=== PATIENT | male | born 1965 | race Caucasian/White ===

== ENCOUNTER 2020-07-02 16:47 | Emergency (ER) | payer MEDICAID ==
[~2020-07-02] VITALS: Ht 190.5 cm; Wt 114.5 kg
[2020-07-02] MEDS ORDERED: DOXY100C77 PO (17:54)
[2020-07-02] MEDS ORDERED: DOXYCYCLINE 100MG CAPSULE PO STA (17:56)
[2020-07-02 18:12] VITALS: BP 167/103
== END 2020-07-02 18:16 | disposition home or self-care (01) ==
LOC: ER 16:47
DX: L03.221 Cellulitis of neck (principal); R03.0 Elevated blood-pressure reading, without diagnosis of hypertension; R53.83 Other fatigue; Z88.2 Allergy status to sulfonamides; Z79.899 Other long term (current) drug therapy
CPT/HCPCS: 99283

== ENCOUNTER 2021-01-22 08:20 | Emergency (ER) | payer MEDICAID ==
[~2021-01-22] VITALS: Ht 190.5 cm; Wt 113.6 kg
[2021-01-22] MEDS ORDERED: adenosine 3mg/ml 2ml vial IV ONE ×4 (08:40)
[2021-01-22] MEDS ORDERED: normal saline 1000ML IV soln IVB ONE ×2 (08:40→09:25)
[2021-01-22] MEDS ORDERED: aspirin 81mg tab.chew PO ONE (08:40)
[2021-01-22 08:58] LABS: BASOPHILS # (AUTO) 0.1 X10'3 (0-0.2); BASOPHILS % (AUTO) 0.5 % (0-1); EOSINOPHILS # (AUTO) 0.3 X10'3 (0-0.9); EOSINOPHILS % (AUTO) 2.8 % (0-6); HEMATOCRIT 55.2 % (42.0-52.0); LYMPHOCYTES # (AUTO) 3.8 X10'3 (1.1-4.8); MEAN CORPUSCULAR HGB CONC 35.1 g/dL (33.0-36.5); MEAN CORPUSCULAR VOLUME 94.1 FL (78-98); MEAN PLATELET VOLUME 8.7 FL (7.4-10.4); MONOCYTES # (AUTO) 0.9 X10'3 (0-0.9); MONOCYTES % (AUTO) 7.7 % (2-12); NEUTROPHILS # (AUTO) 6.1 X10'3 (1.8-7.7); PLATELET COUNT 230 X10'3 (140-440); RED BLOOD COUNT 5.87 X10'6 (4.70-6.10); RED CELL DISTRIBUTION WIDTH 12.8 % (11.5-14.5); WHITE BLOOD COUNT 11.1 X10'3 (4.5-11.0)
--- NOTE | 2021-01-22 08:59 | NUR ---
0848- DR PENN AT BEDSIDE. 6MG ADENOSINE PUSHED VIA IV FOR HEARTRATE 180. PT TOLERATED WELL 0854- DR PENN AT BEDSIDE, 12MG ADENOSINE PUSHED VIA IV FOR HEARTRATE 174. PT TOLERATING WELL. HEARTRATE BACK IN SR AT 99
[2021-01-22 09:03] LABS: HEMOGLOBIN 19.4 g/dl (14.0-17.9)
[2021-01-22 09:10] LABS: ALANINE AMINOTRANSFERASE 56 U/L (12-78); ALBUMIN 4.3 G/DL (3.4-5.0); ALBUMIN/GLOBULIN RATIO 1.2 (1.1-1.5); ALKALINE PHOSPHATASE 72 IU/L (46-116); ANION GAP 9 (8-16); ASPARTATE AMINO TRANSFERASE 41 U/L (10-37); BILIRUBIN,TOTAL 1.2 MG/DL (0.1-1.0); BLOOD UREA NITROGEN 23 MG/DL (7-18); BUN/CREATININE RATIO 23.5 (5.4-32.0); CALCIUM 8.9 MG/DL (8.5-10.1); CHLORIDE 104 MMOL/L (99-107); CREATININE 0.98 MG/DL (0.60-1.10); GLUCOSE 147 MG/DL (70-104); MAGNESIUM 2.2 MG/DL (1.5-2.4); POTASSIUM 3.9 MMOL/L (3.5-5.1); SODIUM 140 MMOL/L (135-145); TOTAL PROTEIN 7.8 G/DL (6.4-8.2); eGFR 79 ML/MIN
[2021-01-22 11:07] VITALS: BP 137/101
[2021-01-22] MEDS ORDERED: FLEC100T35 PO (13:34)
== END 2021-01-22 15:38 | disposition home or self-care (01) ==
LOC: ER 08:21
DX: I47.1 Supraventricular tachycardia (principal); I10 Essential (primary) hypertension; G89.29 Other chronic pain; Z72.89 Other problems related to lifestyle; Z88.2 Allergy status to sulfonamides
CPT/HCPCS: 36415; 71045; 80053; 83735; 84484; 85025; 93005; 96361; 96374; 99291; J0153; J7030; 96375